=== PATIENT | female | born 1990 | race American Indian/Alaskan Native ===

== ENCOUNTER 2018-11-25 15:15 | Emergency (ER) | payer MEDICAID, OTHER ==
[2018-11-25 15:32] VITALS: RESP 18; TEMP 98
[2018-11-25 15:38] VITALS: O2SAT 100
[2018-11-25] MEDS ORDERED: Sodium Chloride 0.9% 1,000 ML IV STA (15:44)
[2018-11-25 16:41] LABS: BASO # 0.03 K/mm3 (0.0-2.0); BASO % 0.3 % (0.0-3.0); EOS % 0.2 % (1.5-5.0); LYMPH # 1.4 (1.2-3.4); LYMPH % 12.7 % (22.0-35.0); MEAN CELL VOLUME 86.4 fl (80.0-105.0); MEAN CORPUSCULAR HEMOGLOBIN 31.3 pg (25.0-35.0); MEAN CORPUSCULAR HGB CONC 36.2 g/dl (31.0-37.0); MEAN PLATELET VOLUME 10.4 fl (7.0-11.0); MONO # 0.8 (0.1-0.6); MONO % 7.5 % (1.0-6.0); RBC 4.48 10^6/uL (3.5-6.1); RED CELL DISTRIBUTION WIDTH 11.6 % (11.5-14.5); WHITE BLOOD COUNT 11.1 10^3/uL (4.5-11.0)
[2018-11-25 16:43] LABS: ALB/GLOB RATIO 1.3 (1.1-1.8); ALBUMIN 4.4 g/dL (3.0-4.8); ALT/SGPT 13 U/L (7-56); AST/SGOT 22 U/L (14-36); BLOOD UREA NITROGEN 11 mg/dL (7-21); CALCIUM 9.4 mg/dL (8.4-10.5); GFR NON-AFRICAN AMERICAN > 60
[2018-11-25 16:45] LABS: URINE BILIRUBIN NEGATIVE (NEGATIVE); URINE BLOOD TRACE-INTACT (NEGATIVE); URINE GLUCOSE (UA) NEGATIVE (NEGATIVE); URINE LEUKOCYTE ESTERASE NEGATIVE Leu/uL (NEGATIVE); URINE PROTEIN NEGATIVE mg/dL (<30 mg/dL)
--- NOTE | 2018-11-25 16:45 | ED PDOC ---
Arrival/HPI - General Chief Complaint: GI Problem Time Seen by Provider: 11/25/18 15:31 Historian: Patient - History of Present Illness Narrative History of Present Illness (Text): 11/25/18 16:41 28 y/o A1 8 week by LMP female with no significant PMH presents to the ED c/o nausea, vomiting, and generalized fatigue x 1 month. Admits to approximately 3 episodes of non bloody nonbilious emesis daily. Associated inter mittent lower abdominal cramping. Pt was seen on 11/12/18 fat [facility] for similar complaints and told she was at that time after US that showed IUP. She is taking vitamins daily. Denies vaginal bleeding, fever, chills, diarrhea, constipation, urinary symptoms, back pain, chest pain, SOB, congestion, palpitations, or any other associated symptoms. Past Medical History - Provider Review Nursing Documentation Reviewed: Yes - Infectious Disease Hx of Infectious Diseases: None - Reproductive Menopause: No - Cardiac Hx Cardiac Disorders: No - Pulmonary Hx Respiratory Disorders: No - Neurological Hx Neurological Disorder: No - Psychiatric Hx Substance Use: No Family/Social History - Physician Review Nursing Documentation Reviewed: Yes Family/Social History: No Known Family HX Smoking Status: Former Smoker Hx Alcohol Use: No Hx Substance Use: No Allergies/Home Meds Allergies/Adverse Reactions: Allergies No Known Allergies Allergy (Verified 11/27/18 09:43) Review of Systems - Physician Review All systems were reviewed & negative as marked: Yes - Review of Systems Constitutional: Fatigue. absent: Fevers Eyes: Normal. absent: Vision Changes ENT: Normal. absent: Sore Throat, Sinus Congestion Respiratory: Normal. absent: SOB, Cough Cardiovascular: Normal. absent: Chest Pain, Palpitations Gastrointestinal: Abdominal Pain, Nausea, Vomiting Genitourinary Female: Normal. absent: Dysuria, Frequency, Vaginal Bleeding, Vaginal Discharge Musculoskeletal: Normal. absent: Back Pain, Neck Pain Skin: Normal. absent: Rash Neurological: Normal. absent: Headache, Dizziness Physical Exam Vital Signs Reviewed: Yes Vital Signs Temp Pulse Resp BP Pulse Ox 11/25/18 15:37 75 18 123/72 100 11/25/18 15:25 98 F 50 L 18 117/84 99 Temperature: Afebrile Blood Pressure: Normal Pulse: Bradycardic Respiratory Rate: Normal Appearance: Positive for: Non-Toxic, Uncomfortable Pain Distress: None Mental Status: Positive for: Alert and Oriented X 3 - Systems Exam Head: Present: Atraumatic, Normocephalic Pupils: Present: PERRL Extroacular Muscles: Present: EOMI Conjunctiva: Present: Normal Mouth: Present: Moist Mucous Membranes Neck: Present: Normal Range of Motion. No: Meningeal Signs Respiratory/Chest: Present: Clear to Auscultation, Good Air Exchange. No: Respiratory Distress, Accessory Muscle Use Cardiovascular: Present: Regular Rate and Rhythm, Normal S1, S2, Peripheal Pulses Present Abdomen: Present: Tenderness (mild suprapubic), Normal Bowel Sounds. No: Distention, Peritoneal Signs Back: Present: Normal Inspection. No: CVA Tenderness Upper Extremity: Present: Normal Inspection, Normal ROM, NORMAL PULSES, Neurovascularly Intact, Capillary Refill < 2s. No: Cyanosis, Edema, Temperature Abnormalties Lower Extremity: Present: Normal Inspection, NORMAL PULSES, Normal ROM, Neurovascularly Intact, Capillary Refill < 2 s. No: Edema, Temperature Abnor malties Neurological: Present: GCS=15, CN II-XII Intact, Speech Normal, Motor Func Grossly Intact, Normal Sensory Function, Gait Normal Skin: Present: Warm, Dry, Normal Color. No: Rashes Psychiatric: Present: Alert, Oriented x 3, Normal Insight, Normal Concentration, Normal Affect, Normal Mood Medical Decision Making ED Course and Treatment: Initial Plan: * Labs * UA, POC * Transvaginal Ultrasound * IVF 17:22 Ultrasound unremarkable for pathology, shows live IUP at 6 weeks Bloodwork reviewed, mild hypoglycemia, otherwise unremarkable. WBC 11.1. No anemia, or electrolyte abnormalities. Pt give juice to drink. Urine shows bacteria. Pt is asymptomatic, but will treat with keflex secondary to . Patient tolerated PO without difficulty. No vomiting during ED stay. Repeat blood sugar 120 Patient states she feels much better after fluids and juice. No complaints of dizziness, fatigue, nausea, vaginal bleeding, or abdominal pain. Advised OBGYN and PMD followup. Told to continue vitamins. Advised to return immediately for worsening abdominal pain, intractable vomiting, fever, or vaginal bleeding. Diagnostic testing results and plan of care discussed with patient. Strict instructions given regarding prescription use, importance of followup, and signs/symptoms to return to ER including worsening pain, fever, chills,syncope or any other new/worsening symptoms. Pt verbalized understanding of discussion. Patient is A&Ox3, ambulating with steady gait, with vital signs stable for discharge. - Lab Interpretations Lab Results: 11/25/18 16:20 11/25/18 16:20 Lab Results 11/25/18 18:15: POC Glucose (mg/dL) 120 H 11/25/18 16:20: Beta HCG, Quant 24095.00 H 11/25/18 16:20: Sodium 134, Potassium 4.4, Chloride 99, Carbon Dioxide 26, Anion Gap 13, BUN 11, Creatinine 0.8, Est GFR ( Amer) > 60, Est GFR (Non-Af Amer) > 60, Random Glucose 69 L, Calcium 9.4, Total Bilirubin 1.5 H, AST 22, ALT 13, Alkaline Phosphatase 57, Total Protein 7.9, Albumin 4.4, Globulin 3.4, A lbumin/Globulin Ratio 1.3, Lipase 23 11/25/18 16:20: PT 15.6 H, INR 1.41, APTT 26.5 L 11/25/18 16:20: WBC 11.1 H, RBC 4.48, Hgb 14.0, Hct 38.7, MCV 86.4, MCH 31.3, MCHC 36.2, RDW 11.6, Plt Count 211, MPV 10.4, Neut % (Auto) 79.3 H, Lymph % (Auto) 12.7 L, [place] % (Auto) 7.5 H, Eos % (Auto) 0.2 L, Baso % (Auto) 0.3, Lymph # (Auto) 1.4, [place] # (Auto) 0.8 H, Eos # (Auto) 0.0, Baso # (Auto) 0.03, Absolute Neuts (auto) 8.85 H 11/25/18 16:15: Urine Color Yellow, Urine Appearance Clear, Urine pH 6.0, Ur Specific [place] 1.025, Urine Protein Negative, Urine Glucose (UA) Negative, Urine Ketones >=80, Urine Blood Trace-intact H, Urine Nitrate Negative, Urine Bilirubin Negative, Urine Urobilinogen 1.0 H, Ur Leukocyte Esterase Negative, Urine RBC 0 - 2, Urine WBC 0 - 2, Ur Epithelial Cells 1 - 3, Urine Bacteria Small I have reviewed the lab results: Yes - RAD Interpretation Narrative RAD Interpretations (Text): 11/25/18 17:23 Transvaginal Ultrasound: FINDINGS: LMP: 10/03/2018. Prior examinations from the current : None TECHNIQUE: Real-time 2D imaging, duplex and color Doppler. FINDINGS: Cardiac activity: Present Rate: 137 BPM Measurements: [place] rump length: 0.40 cm Gestational age based on CRL 6 weeks 1 day Gestational age 6 weeks 2 days based on gestational sac measurement 1.90 cm Gestational age derived from LMP: 7 weeks SALOME based on LMP: 07/10/2019 SALOME based on biometry: 07/19/2019 Gestational concordance noted Yolk sac identified Cervix: No Cervical abnormalities: Negative examination for cervical dilatation or effacement. Closed cervix measuring 3.14 cm Subchorionic hemorrhage: None UTERUS: 6 x 6.9 x 8.7 cm. ADNEXA: Right: 2.5 x 2.5 x 3.1 cm. Multiple subcentimeter follicles. Dominant cyst 1.5 x 1.8 cm normal Doppler arterial waveform documented. Left: 1.7 x 2 x 2.3 cm. Normal Doppler arterial waveform documented Fluid in the cul-de-sac: IMPRESSION: Six weeks 2 days live intrauterine gestation. Radiology Orders: 11/25/18 15:49 OB TRANSVAGINAL [US] Stat Protective Signal Installer Helper: Radiologist - Medication Orders Current Medication Orders: Sodium Chloride (Sodium Chloride 0.9%) 1,000 mls @ 999 mls/hr IV .Q1H1M STA Stop: 11/25/18 16:44 Last Admin: 11/25/18 16:24 Dose: 999 mls/hr eMAR Start Stop Document 11/25/18 16:24 CD (Rec: 11/25/18 16:24 CD [id number] Intravenous Solution Start Date 11/25/18 Start Time 16:24 End Date 11/25/18 End time 17:25 Total Infusion Time 61 Disposition/Present on Arrival - Present on Arrival Any Indicators Present on Arrival: No History of DVT/PE: No History of Uncontrolled Diabetes: No Urinary Catheter: No History of Decub. Ulcer: No History Surgical Site Infection Following: None - Disposition Have Diagnosis and Disposition been Completed?: Yes Diagnosis: Nausea/vomiting in , Asymptomatic bacteriuria Disposition: HOME/ ROUTINE Disposition Time: 17:34 Patient Plan: Discharge Condition: IMPROVED Discharge Instructions (ExitCare): Nausea and Vomiting of (DC) Additional Instructions: Keflex every 12 hours for 7 days Diclegis 2 tabs nightly as needed Continue vitamins Increase fluids Rest, no strenuous activity Followup with OBGYN within 2 days Followup with primary doctor within 2 days Return to ER with any new/worsening symptoms Prescriptions: Cephalexin [Keflex] 500 mg PO BID 7 Days #14 capsule Doxylamine/Pyridoxine HCl (B6) [Cynthia Dr 10-10 mg Tablet] 2 each PO HS #14 tablet.dr Referrals: Brett Valverde MD [Staff Provider] - Follow up with primary Elena Valdez MD [Medical Doctor] - Follow up with primary [facility] [place] - [facility] [[facility]] - Follow up with primary Forms: [employer] (S[place]i), WORK NOTE
[2018-11-25 16:46] LABS: INR 1.41; PARTIAL THROMBOPLASTIN TIME 26.5 Seconds (26.9-38.3); PROTHROMBIN TIME 15.6 SECONDS (9.4-12.5)
[2018-11-25 16:47] LABS: URINE APPEARANCE CLEAR (CLEAR); URINE COLOR YELLOW (YELLOW)
[2018-11-25 16:58] LABS: URINE BACTERIA SMALL /hpf; URINE RBC 0 - 2 /hpf (0-2); URINE WBC 0 - 2 /hpf (0-6)
[2018-11-25 17:01] LABS: LIPASE 23 U/L (23-300)
--- NOTE | 2018-11-25 17:19 | US ---
Date of service: 11/25/2018 PROCEDURE: First trimester ultrasound HISTORY: 8 weeks , abdominal discomfort COMPARISON: None TECHNIQUE: Standard protocol for this study/examination. FINDINGS: LMP: 10/03/2018. Prior examinations from the current : None TECHNIQUE: Real-time 2D imaging, duplex and color Doppler. FINDINGS: Cardiac activity: Present Rate: 137 BPM Measurements: [place] rump length: 0.40 cm Gestational age based on CRL 6 weeks 1 day Gestational age 6 weeks 2 days based on gestational sac measurement 1.90 cm Gestational age derived from LMP: 7 weeks SALOME based on LMP: 07/10/2019 SALOME based on biometry: 07/19/2019 Gestational concordance noted Yolk sac identified Cervix: No Cervical abnormalities: Negative examination for cervical dilatation or effacement. Closed cervix measuring 3.14 cm Subchorionic hemorrhage: None UTERUS: 6 x 6.9 x 8.7 cm. ADNEXA: Right: 2.5 x 2.5 x 3.1 cm. Multiple subcentimeter follicles. Dominant cyst 1.5 x 1.8 cm normal Doppler arterial waveform documented. Left: 1.7 x 2 x 2.3 cm. Normal Doppler arterial waveform documented Fluid in the cul-de-sac: IMPRESSION: Six weeks 2 days live intrauterine gestation.
[2018-11-25 17:43] VITALS: BP 113/70; PULSE 77
== END 2018-11-25 18:41 | disposition home or self-care (01) ==
LOC: MERGE 15:15 → ED 15:15
DX: O21.9 Vomiting of pregnancy, unspecified (principal); O26.891 Other specified pregnancy related conditions, first trimester; R82.71 Bacteriuria; Z3A.01 Less than 8 weeks gestation of pregnancy
CPT/HCPCS: 76817; 80053; 81001; 81025; 82948; 83690; 84702; 85025; 85610; 85730; 96360; 99284; J7030

== ENCOUNTER 2018-12-06 16:29 | Emergency (ER) | payer MEDICAID ==
[2018-12-06 16:47] VITALS: BP 106/69; PULSE 80; RESP 18; TEMP 98.5; O2SAT 100
--- NOTE | 2018-12-06 16:50 | ED PDOC ---
Arrival/HPI - General Chief Complaint: GI Problem Time Seen by Provider: 12/06/18 16:49 Historian: Patient - History of Present Illness Narrative History of Present Illness (Text): 12/06/18 16:49 28 y/o female, no significant pmh, nkda, LMP 10/10/2018, , nkda, here for the prescription for the diclegis. pt. sated that she has morning sickness and relief with the diclegis, out of the medication today, no vaginal spotting or bleeding, no fever or chills, no night sweat, no rash, no diarrhea, no abdominal pain, no palpitation, no change in vision, no other medical or psychological complaints. Past Medical History - Provider Review Nursing Documentation Reviewed: Yes - Infectious Disease Hx of Infectious Diseases: None - Reproductive Menopause: No - Cardiac Hx Cardiac Disorders: No - Pulmonary Hx Respiratory Disorders: No - Neurological Hx Neurological Disorder: No - Psychiatric Hx Substance Use: No - Anesthesia Hx Anesthesia: No - Suicidal Assessment Feels Threatened In Home Enviroment: No Family/Social History - Physician Review Nursing Documentation Reviewed: Yes Family/Social History: Unknown Family HX Smoking Status: Former Smoker Hx Alcohol Use: No Hx Substance Use: No Allergies/Home Meds Allergies/Adverse Reactions: Allergies No Known Allergies Allergy (Verified 11/27/18 09:43) Review of Systems - Review of Systems Constitutional: absent: Fatigue, Fevers Eyes: absent: Vision Changes ENT: absent: Hearing Changes Respiratory: absent: SOB, Cough Cardiovascular: absent: Chest Pain Gastrointestinal: absent: Abdominal Pain, Diarrhea, Nausea, Vomiting Musculoskeletal: absent: Arthralgias, Back Pain Skin: absent: Rash, Pruritis Neurological: absent: Headache, Dizziness Hemo/Lymphatic: absent: Adenopathy, Easy Bleeding Psychiatric: absent: Anxiety, Depression, Suicidal Ideation Physical Exam Vital Signs Reviewed: Yes Vital Signs Temp Pulse Resp BP Pulse Ox 12/06/18 16:42 98.5 F 80 18 106/69 100 Temperature: Afebrile Blood Pressure: Normal Pulse: Regular Respiratory Rate: Normal Appearance: Positive for: Well-Appearing, Non-Toxic, Comfortable Pain Distress: None Mental Status: Positive for: Alert and Oriented X 3 - Systems Exam Head: Present: Atraumatic, Normocephalic Pupils: Present: PERRL Extroacular Muscles: Present: EOMI Conjunctiva: Present: Normal Mouth: Present: Moist Mucous Membranes Neck: Present: Normal Range of Motion Respiratory/Chest: Present: Clear to Auscultation, Good Air Exchange. No: Respiratory Distress, Accessory Muscle Use Cardiovascular: Present: Regular Rate and Rhythm, Normal S1, S2. No: Murmurs Abdomen: Present: Normal Bowel Sounds. No: Tenderness, Distention, Peritoneal Signs, Rebound, Guarding, McBurney's Point Tender, Rovsing's Sign Present, Scars Back: Present: Normal Inspection Upper Extremity: Present: Normal Inspection. No: Cyanosis, Edema Lower Extremity: Present: Normal Inspection. No: Edema Neurological: Present: GCS=15, CN II-XII Intact, Speech Normal Skin: Present: Warm, Dry, Normal Color. No: Rashes Psychiatric: Present: Alert, Oriented x 3, Normal Insight, Normal Concentration Medical Decision Making ED Course and Treatment: 12/06/18 16:50 -ua 12/06/18 17:46 -UA show show no UTI -Pt. is asymptomatic, just want the prescription and would like to be discharged. -Discharge home with cynthia, stay hydrated, follow up with your own pmd and obgyn within 2 days, return to the ER for any new or worsening signs or symptoms. - PA / DIRECTOR OF DEMENTIA OPERATIONS / Resident Statement MD/DO has reviewed & agrees with the documentation as recorded. Disposition/Present on Arrival - Present on Arrival Any Indicators Present on Arrival: No History of DVT/PE: No History of Uncontrolled Diabetes: No Urinary Catheter: No History of Decub. Ulcer: No History Surgical Site Infection Following: None - Disposition Have Diagnosis and Disposition been Completed?: Yes Diagnosis: , Medication refill Disposition: HOME/ ROUTINE Disposition Time: 16:50 Patient Plan: Discharge Patient Problems: Current Active Problems Problem Status Onset Medication refill Acute Acute Condition: GOOD Additional Instructions: -Discharge home with cynthia, stay hydrated, follow up with your own pmd and obgyn within 2 days, return to the ER for any new or worsening signs or symptoms. Prescriptions: Doxylamine/Pyridoxine HCl (B6) [Cynthia Cristobal 10-10 mg Tablet] 2 tab PO QPM PRN #60 tablet. PRN Reason: Other Referrals: Beverly Sal MD [Staff Provider] - Follow up with primary [facility] at [facility] [place]Outside] - Follow up with primary Forms: [employer] ([place] Korean), WORK NOTE
[2018-12-06 17:31] LABS: URINE BILIRUBIN NEGATIVE (NEGATIVE); URINE BLOOD NEGATIVE (NEGATIVE); URINE GLUCOSE (UA) NEGATIVE (NEGATIVE); URINE LEUKOCYTE ESTERASE NEGATIVE Leu/uL (NEGATIVE); URINE PROTEIN TRACE mg/dL (<30 mg/dL)
[2018-12-06 17:32] LABS: URINE COLOR YELLOW (YELLOW)
[2018-12-06 17:43] LABS: URINE APPEARANCE SL CLOUDY (CLEAR); URINE BACTERIA MOD /hpf
== END 2018-12-06 17:54 | disposition home or self-care (01) ==
LOC: ED 16:29
DX: Z76.0 Encounter for issue of repeat prescription (principal); O26.899 Other specified pregnancy related conditions, unspecified trimester; Z3A.00 Weeks of gestation of pregnancy not specified